=== PATIENT | female | born 1980 | race Caucasian/White ===

== ENCOUNTER → 2024-09-14 10:37 | Outpatient (REF) | payer BC, SELFPAY | LOC: RAD 10:37 | PROVIDERS: ATTENDING PHYSICIAN Student in an Organized Health Care Education/Training Program; FAMILY PHYSICIAN Student in an Organized Health Care Education/Training Program | DX: I73.00 Raynaud's syndrome without gangrene (principal); M25.50 Pain in unspecified joint; M25.512 Pain in left shoulder; M79.641 Pain in right hand; M79.642 Pain in left hand; R31.9 Hematuria, unspecified; R76.8 Other specified abnormal immunological findings in serum | CPT/HCPCS: 73030; 73120 ==

== ENCOUNTER → 2024-09-23 09:57 | Outpatient (REF) | payer BC, SELFPAY | LOC: HWRAD 09:57 | PROVIDERS: ATTENDING PHYSICIAN Student in an Organized Health Care Education/Training Program; FAMILY PHYSICIAN Student in an Organized Health Care Education/Training Program | DX: R31.9 Hematuria, unspecified (principal); R74.01 Elevation of levels of liver transaminase levels; R74.8 Abnormal levels of other serum enzymes; R76.8 Other specified abnormal immunological findings in serum | CPT/HCPCS: 76700 ==